=== PATIENT | female | born 1955 | race Caucasian/White ===

== ENCOUNTER → 2019-02-20 | Outpatient (CLI) | payer MEDICARE, MEDICAID ==
[2019-02-20 09:43] LABS: ABSOLUTE BASOPHILS # (AUTO) 0.1 10^3/uL (0.0-0.2); ABSOLUTE EOSINOPHILS # (AUTO) 0.3 10^3/uL (0.0-0.6); ABSOLUTE LYMPHOCYTES (AUTO) 1.7 10^3/uL (0.5-4.7); ABSOLUTE MONOCYTES (AUTO) 0.5 10^3/uL (0.1-1.4); ABSOLUTE NEUT (AUTO) 6.5 10^3/uL (1.7-8.2); BASOPHILS % (AUTO) 0.7 % (0-2); EOSINOPHILS % (AUTO) 2.8 % (0-6); HEMATOCRIT 36.6 % (36.0-47.0); HEMOGLOBIN 12.2 g/dL (12.0-15.5); LYMPHOCYTES % (AUTO) 18.5 % (13-45); MEAN CORPUSCULAR HEMOGLOBIN 26.3 pg (27.0-33.4); MEAN CORPUSCULAR HGB CONC 33.4 g/dL (32.0-36.0); MEAN CORPUSCULAR VOLUME 79 fl (80-97); MONOCYTES % (AUTO) 5.8 % (3-13); PLATELET COUNT 317 10^3/uL (150-450); RED BLOOD COUNT 4.65 10^6/uL (3.72-5.28); RED CELL DISTRIBUTION WIDTH 15.6 % (11.5-14.0); SEGMENTED NEUTROPHILS % (AUTO) 72.2 % (42-78); TOTAL CELLS COUNTED % (AUTO) 100 %
[2019-02-20 10:06] LABS: ALBUMIN 4.1 g/dL (3.5-5.0); ALKALINE PHOSPHATASE 69 U/L (38-126); ANION GAP 9 (5-19); ASPARTATE AMINO TRANSFERASE 17 U/L (14-36); BILIRUBIN,DIRECT 0.2 mg/dL (0.0-0.4); BILIRUBIN,TOTAL 0.6 mg/dL (0.2-1.3); BLOOD UREA NITROGEN 26 mg/dL (7-20); CALCIUM 9.9 mg/dL (8.4-10.2); CARBON DIOXIDE 28 mmol/L (22-30); CHLORIDE 102 mmol/L (98-107); GLUCOSE 120 mg/dL (75-110); POTASSIUM 4.2 mmol/L (3.6-5.0); TOTAL PROTEIN 7.2 g/dL (6.3-8.2)
== END ==
LOC: OD 08:54 → EDSTATUS 02-27 10:30
PROVIDERS: ATTEND Orthopaedic Surgery
DX: Z01.89 Encounter for other specified special examinations (principal); M43.16 Spondylolisthesis, lumbar region; I10 Essential (primary) hypertension
CPT/HCPCS: 36415; 80053; 85025

== ENCOUNTER 2019-04-10 10:59 | Observation (INO) | payer MEDICARE, MEDICAID ==
--- NOTE | 2019-04-03 11:36 | EKG REPORT ---
SEVERITY:- NORMAL ECG - SINUS RHYTHM : Confirmed by: Nuvia Mullen MD 03-Apr-2019 11:36:08
[2019-04-03 12:07] LABS: ABSOLUTE BASOPHILS # (AUTO) 0.1 10^3/uL (0.0-0.2); ABSOLUTE EOSINOPHILS # (AUTO) 0.2 10^3/uL (0.0-0.6); ABSOLUTE LYMPHOCYTES (AUTO) 1.7 10^3/uL (0.5-4.7); ABSOLUTE MONOCYTES (AUTO) 0.5 10^3/uL (0.1-1.4); ABSOLUTE NEUT (AUTO) 6.7 10^3/uL (1.7-8.2); BASOPHILS % (AUTO) 0.6 % (0-2); EOSINOPHILS % (AUTO) 2.3 % (0-6); HEMATOCRIT 36.3 % (36.0-47.0); HEMOGLOBIN 12.5 g/dL (12.0-15.5); LYMPHOCYTES % (AUTO) 18.6 % (13-45); MEAN CORPUSCULAR HEMOGLOBIN 26.8 pg (27.0-33.4); MEAN CORPUSCULAR HGB CONC 34.5 g/dL (32.0-36.0); MEAN CORPUSCULAR VOLUME 78 fl (80-97); MONOCYTES % (AUTO) 5.1 % (3-13); PLATELET COUNT 338 10^3/uL (150-450); RED BLOOD COUNT 4.66 10^6/uL (3.72-5.28); RED CELL DISTRIBUTION WIDTH 15.1 % (11.5-14.0); SEGMENTED NEUTROPHILS % (AUTO) 73.4 % (42-78); TOTAL CELLS COUNTED % (AUTO) 100 %; WHITE BLOOD COUNT 9.1 10^3/uL (4.0-10.5)
[2019-04-03 12:24] LABS: ANION GAP 11 (5-19); BLOOD UREA NITROGEN 25 mg/dL (7-20); CALCIUM 10.1 mg/dL (8.4-10.2); CARBON DIOXIDE 30 mmol/L (22-30); CHLORIDE 98 mmol/L (98-107); GLUCOSE 122 mg/dL (75-110); POTASSIUM 4.8 mmol/L (3.6-5.0)
--- NOTE | 2019-04-03 13:13 | RADIOLOGY REPORT (SQ) ---
EXAM DESCRIPTION: CHEST PA/LATERAL COMPLETED DATE/TIME: 04/03/2019 11:53 am REASON FOR STUDY: PRE-OP COMPARISON: None. EXAM PARAMETERS: NUMBER OF VIEWS: two views TECHNIQUE: Digital Frontal and Lateral radiographic views of the chest acquired. RADIATION DOSE: NA LIMITATIONS: none FINDINGS: LUNGS AND PLEURA: No consolidation, pleural effusion or pneumothorax. MEDIASTINUM AND HILAR STRUCTURES: No mediastinal or hilar contour abnormality. HEART AND VASCULAR STRUCTURES: The cardiac silhouette and pulmonary vasculature are within normal [place] its. BONES: No acute findings. HARDWARE: Cholecystectomy clips in the right upper quadrant. OTHER: No other finding. IMPRESSION: No acute cardiopulmonary process. TECHNICAL DOCUMENTATION: JOB ID: [id number] [employer]- All Rights Reserved Reading location - IP/workstation name: [email or web address]
[~2019-04-10 10:59] MED LIST: LACTATED RINGERS 1000 ML IV PRN; LIDOCAINE 0.5% INJ-PF (5 MG/ML) 50 ML SDV SUBCUT PRN
[2019-04-10] MEDS ORDERED: PHENYLEPHRINE HCL INJ/PF 10 MG/1 ML SDV ONE (12:00)
[2019-04-10] MEDS ORDERED: SUCCINYLCHOLINE CHLORIDE INJ 200 MG/10 ML VIAL ONE (12:00)
[2019-04-10] MEDS ORDERED: CEFAZOLIN 1 GM/D5W RTU 1 GM/50 ML RTUPB IV ONE (13:40)
[2019-04-10] MEDS ORDERED: CEFAZOLIN INJ 1 GM VIAL ONE (13:40)
[2019-04-10] MEDS ORDERED: FENTANYL CITRATE INJ/PF 250 MCG/5 ML AMPULE ONE (13:52)
[2019-04-10] MEDS ORDERED: ONDANSETRON HCL INJ/PF 4 MG/2 ML SDV ONE (13:52)
[2019-04-10] MEDS ORDERED: MIDAZOLAM 2 MG/2 ML INJ ONE (13:52)
[2019-04-10] MEDS ORDERED: PROPOFOL INJ 200 MG/20 ML VIAL IV ONE ×3 (13:53→14:13)
[2019-04-10] MEDS ORDERED: MINERAL OIL (STERILE) 10 ML VIAL ONE (15:24)
[2019-04-10] MEDS ORDERED: BACITRACIN INJ 50,000 UNIT VIAL ONE (15:24)
[2019-04-10] MEDS ORDERED: HEPARIN SOD (PORCINE) 1,000 UNIT/ML 10 ML VIAL ONE (15:32)
[2019-04-10] MEDS ORDERED: BUPIVACAINE INJ/PF LIPOSOME/PF 266 MG/20 ML SDV ONE (15:57)
[2019-04-10] MEDS ORDERED: BUPIVACAINE HCL 0.5 % INJ/PF 30 ML SDV ONE (15:58)
--- NOTE | 2019-04-10 17:46 | RADIOLOGY REPORT (SQ) ---
EXAM DESCRIPTION: L SPINE 2 VIEWS; NO CHG FLUORO COMPLETED DATE/TIME: 04/10/2019 5:31 pm REASON FOR STUDY: SPINAL FUSION L4-L5 M54.32 SCIATICA, LEFT SIDE M54.5 LOW BACK PAIN M43.16 SPOND YLOLISTHESIS, LUMBAR REGION COMPARISON: None. FLUOROSCOPY TIME: 1.0 minutes. 9 images saved to PACS. TECHNIQUE: Intra-operative images acquired during surgical procedure to evaluate progress. NUMBER OF IMAGES: 9 images. LIMITATIONS: None. FINDINGS: Images of the lower lumbar spine acquired during the procedure. IMPRESSION: IMAGE(S) OBTAINED DURING PROCEDURE. COMMENT: Quality ID [id number]: Final reports for procedures using fluoroscopy that document radiation exp osure indices, or exposure time and number of fluorographic images (if radiation exposure indices are not available) Please consult full operative report of the attending physician for description of the procedure. TECHNICAL DOCUMENTATION: JOB ID: [id number] [employer]- All Rights Reserved Reading location - IP/workstation name: [email or web address]
--- NOTE | 2019-04-10 17:46 | RADIOLOGY REPORT (SQ) ---
EXAM DESCRIPTION: L SPINE 2 VIEWS; NO CHG FLUORO COMPLETED DATE/TIME: 04/10/2019 5:31 pm REASON FOR STUDY: SPINAL FUSION L4-L5 M54.32 SCIATICA, LEFT SIDE M54.5 LOW BACK PAIN M43.16 SPOND YLOLISTHESIS, LUMBAR REGION COMPARISON: None. FLUOROSCOPY TIME: 1.0 minutes. 9 images saved to PACS. TECHNIQUE: Intra-operative images acquired during surgical procedure to evaluate progress. NUMBER OF IMAGES: 9 images. LIMITATIONS: None. FINDINGS: Images of the lower lumbar spine acquired during the procedure. IMPRESSION: IMAGE(S) OBTAINED DURING PROCEDURE. COMMENT: Quality ID [id number]: Final reports for procedures using fluoroscopy that document radiation exp osure indices, or exposure time and number of fluorographic images (if radiation exposure indices are not available) Please consult full operative report of the attending physician for description of the procedure. TECHNICAL DOCUMENTATION: JOB ID: [id number] [employer]- All Rights Reserved Reading location - IP/workstation name: [email or web address]
[2019-04-10] MEDS ORDERED: HYDROCODONE/ACETAMINOPHEN 5-325 MG TABLET PO PRN (17:50)
[2019-04-10] MEDS ORDERED: METHOCARBAMOL 500 MG TABLET PO PRN (17:50)
[2019-04-10] MEDS ORDERED: DIAZEPAM 5 MG TABLET PO PRN (17:50)
[2019-04-10] MEDS ORDERED: ACETAMINOPHEN 325 MG TABLET PO PRN (17:50)
[2019-04-10] MEDS ORDERED: ONDANSETRON 4 MG TAB.RAPDIS PO PRN (17:50)
[2019-04-10] MEDS ORDERED: ONDANSETRON HCL INJ/PF 4 MG/2 ML SDV IV PRN (17:50)
[2019-04-10] MEDS ORDERED: MORPHINE SULFATE 10 MG/ML INJ IV PRN ×2 (17:50→17:58)
[2019-04-10] MEDS ORDERED: FENTANYL CITRATE INJ/PF 100 MCG/2 ML AMPUL ONE (17:51)
[2019-04-10] MEDS: FENTANYL CITRATE INJ/PF 100 MCG/2 ML AMPUL IV PRN ×2 (17:55→18:15)
[2019-04-10] MEDS ORDERED: DIPHENHYDRAMINE HCL 50 MG/ML VIAL IV PRN (17:58)
[2019-04-10] MEDS ORDERED: MEPERIDINE HCL/PF INJ 25 MG/1 ML DISP.SYRIN IV PRN (17:58)
[2019-04-10] MEDS ORDERED: PROMETHAZINE HCL INJ 25 MG/1 ML VIAL IV PRN (17:58)
[2019-04-10] MEDS ORDERED: FENTANYL CITRATE INJ/PF 100 MCG/2 ML AMPUL IV PRN ×2 (17:58)
[2019-04-10] MEDS ORDERED: CEFAZOLIN 2 GM/D5W RTU 2 GM/50 ML RTUPB IV SCH (18:00)
--- NOTE | 2019-04-10 18:04 | Operative Report ---
Operative Report DATE OF SURGERY: 04/10/19 PREOPERATIVE DIAGNOSIS: L4-5 spondylolisthesis. L4-5 stenosis neurogenic barry ication. Degenerative disc disease. Back pain. L4-5 radiculitis POSTOPERATIVE DIAGNOSIS: L4-5 spondylolisthesis. L4-5 stenosis neurogenic claudication. Degenerative disc disease. Back pain. L4-5 radiculitis OPERATION: L4-5 anterior lateral interbody fusion with interbody spacer and instrumentation posteriorly and iliac crest aspiration for bone marrow concentration SURGEON: ANA GORDON 1ST DEVELOPER TRADING SYSTEMS: GURINDER FRASER ANESTHESIA: GA TISSUE REMOVED OR ALTERED: [employer] Voyager 6.5 x 45 mm screws x4 and 40 mm giancarlo on the right and 40 mm giancarlo on the left and interbody spacer is Spinology mesh spacer 22 mm ESTIMATED BLOOD LOSS: 325 cc 175 cc of Cell Saver given back PROCEDURE: Patient is brought into the room placed under general anesthesia received 2 g of Ancef within 1 hour of cut time was placed on the Michael table medial epicondyles and axillary areas are well-padded. Neuro monitoring leads for SSEP and cranial motor testing are placed on the patient as well as a Mcgurie catheter is placed preoperatively. After appropriate surgical timeout the [employer] robot is utilized and on the right posterior superior iliac spine a pin is placed and attached to the robot. After obtaining registration imaging in the AP and oblique position and verification 6.5 x 45 mm screws are inserted using portal incisions on the right and the left at L4 and L5 bilaterally. Left iliac crest is aspirated at 2 different sites total of 50 cc of bone marrow aspirate are obtained and concentrated to be used an interbody spacer with the allograft. Attention was then paid to the left sided anterior lateral portal for entry into the disc space which is carried out under navigation guidance upon verification also with x-rays and then stimulation thresholds greater than 17 mA. Upon inserting the portal into the disc space at L4 5 cm fluoroscopy was used to verify the position as it did also to verify the screws position. Endplate maryellen and curettes and brushes are used to carry out a complete discectomy then the verify balloon is inserted to verify good contact with the endplates. Then the appropriate size mesh spacer is introduced into the interbody. The mesh spacer is soaked in bone marrow aspirate concentrate and is filled with bone graft showing good correction and good containment within the disc space at L4-5. Upon neuro monitoring testing and cranial motor testing found to be stable then the portal is removed anterior laterally and attention is then paid to the placement of the rods upon using the caliper device the appropriate length rods were determined to be 40 mm rods on the right and on the left those are passed down and locked into position and final tightened. Then the tabs are removed and the portals are irrigated with copious amounts of irrigation and the posterior superior iliac spine pin connected to the robot is removed as well and the deep and superficial tissues were infiltrated with 1.3% Exparel 20 cc mixed with 20 cc of 0.5% bupivacaine plain. The portals are closed using 2-0 Vicryl and then Dermabond and Steri-Strips then 4 x 4's were used to cover the wounds on the right and the left and dressed with coverall tape. Please note that this procedure could not be done without the assistance of Ibrahima Jeffrey working to assist with the placement of the screws positioning of the robot carrying out the aspiration through the left side iliac crest aspiration please also note that the iliac crest aspiration is carried out on the left side through a separate incision. Ibrahmia Jeffrey was instrumental throughout this whole process and I could not have done this procedure without his assistance as mentioned above.
[2019-04-10] MEDS ORDERED: SCOPOLAMINE HYDROBROMIDE 1.5 MG PATCH.TD72 TD PRN ×2 (18:15→19:23)
[2019-04-10] MEDS ORDERED: GLUCAGON,HUMAN RECOMB 1 MG INJ IM PRN (18:19)
[2019-04-10] MEDS ORDERED: HYDROMORPHONE HCL INJ/PF 2 MG/ML AMPULE ONE (18:19)
[2019-04-10] MEDS ORDERED: DEXTROSE 50%-WATER 25 GM/50 ML DISP.SYRIN IV PRN ×2 (18:19)
[2019-04-10] MEDS ORDERED: DEXTROSE 40% GEL 15 GM TUBE PO PRN ×2 (18:19)
[2019-04-10] MEDS ORDERED: METHOCARBAMOL INJ/PF 1000 MG/10 ML SDV IV ONE (18:30)
[2019-04-10] MEDS ORDERED: HYDROMORPHONE HCL INJ/PF 2 MG/ML AMPULE IV ONE (20:00)
[2019-04-10] MEDS ORDERED: (PENDING PHARMACY ID) (Zolpidem Tartrate [Zolpidem Tartrate] 10 MG) PO SCH (22:00)
[2019-04-10] MEDS: ZOLPIDEM TARTRATE 5 MG TABLET PO SCH (23:15)
[2019-04-10] MEDS: CEFAZOLIN SODIUM 2 GM in DEXTROSE 5%-WATER 100 ML IV SCH (23:16)
[2019-04-10] MEDS: GABAPENTIN 300 MG CAPSULE PO SCH (23:16)
[2019-04-10] MEDS: DEXTROSE 5%-LACTATED RINGERS 1,000 ML IV PRN (23:17)
[2019-04-10] MEDS: HYDROCODONE/ACETAMINOPHEN 10-325 MG TABLET PO PRN (23:30)
[2019-04-11] MEDS: DEXTROSE 5%-LACTATED RINGERS 1,000 ML IV PRN (04:49)
[2019-04-11] MEDS: GABAPENTIN 300 MG CAPSULE PO SCH ×3 (05:43→22:19)
[2019-04-11] MEDS: CEFAZOLIN SODIUM 2 GM in DEXTROSE 5%-WATER 100 ML IV SCH (05:48)
[2019-04-11 07:00] LABS: HEMATOCRIT 30.2 % (36.0-47.0); HEMOGLOBIN 10.3 g/dL (12.0-15.5); MEAN CORPUSCULAR HEMOGLOBIN 26.9 pg (27.0-33.4); MEAN CORPUSCULAR HGB CONC 34.2 g/dL (32.0-36.0); MEAN CORPUSCULAR VOLUME 79 fl (80-97); PLATELET COUNT 263 10^3/uL (150-450); RED BLOOD COUNT 3.85 10^6/uL (3.72-5.28); RED CELL DISTRIBUTION WIDTH 15.4 % (11.5-14.0); WHITE BLOOD COUNT 10.8 10^3/uL (4.0-10.5)
--- NOTE | 2019-04-11 07:23 | PDOC PROGRESS REPORT ---
Subjective Progress Note for:: 04/11/19 Reason For Visit: M54.32 SCIATICA, LEFT SIDE 63-year-old white female now postop day 1 status post lumbar fusion. Patient with an uneventful postoperative course. Patient having some nausea and complaining of pain this morning. Physical Exam Vital Signs: Temp Pulse Resp BP Pulse Ox 36.4 C 107 H 12 110/68 96 04/10/19 19:12 04/10/19 19:12 04/10/19 19:12 04/10/19 19:12 04/10/19 19:12 Intake & Output 04/10/19 04/11/19 04/12/19 06:59 06:59 06:59 Intake Total 4600 Output Total 825 Balance 3775 Weight 88.9 kg Physical Exam: Overweight middle-aged white female lying comfortably in hospital bed. Patient is alert, oriented, and appropriate. Head exam: PRESENT: normocephalic Respiratory exam: PRESENT: unlabored Cardiovascular exam: PRESENT: RRR Pulses: PRESENT: +1 pedal pulses bilateral GI/Abdominal exam: PRESENT: soft Rectal exam: PRESENT: deferred Extremities exam: PRESENT: other - Lumbar dressing dry Neurological exam: PRESENT: alert, awake, oriented to person, oriented to place, oriented to time, oriented to situation. ABSENT: motor sensory deficit Psychiatric exam: PRESENT: appropriate affect, normal mood. ABSENT: homicidal ideation, suicidal ideation Skin exam: PRESENT: dry, intact, warm. ABSENT: cyanosis, rash Results Laboratory Results: 04/11/19 06:50 04/10/19 11:46 04/10/19 04/11/19 11:46 06:50 WBC 10.8 H RBC 3.85 Hgb 10.3 L Hct 30.2 L MCV 79 L MCH 26.9 L MCHC 34.2 RDW 15.4 H Plt Count 263 Potassium 4.1 Impressions: Chest X-Ray 04/03/19 00:00 IMPRESSION: No acute cardiopulmonary process. Fluoroscopy 04/10/19 00:00 IMPRESSION: IMAGE(S) OBTAINED DURING PROCEDURE. Lumbar Spine X-Ray 04/10/19 00:00 IMPRESSION: IMAGE(S) OBTAINED DURING PROCEDURE. Status: Imported from PACS Assessment & Plan - Diagnosis (1) Lumbar stenosis Is this a current diagnosis for this admission?: Yes Plan: 63-year-old white female status post lumbar fusion with an uneventful postoperative course. Patient with some nausea which is resolving and pain which she is trying to avoid analgesics for. Patient be mobilized with physical therapy today and anticipate discharge home tomorrow. - Time Time Spent with patient: 15-24 minutes Anticipated discharge: Home with Homehealth Within: within 24 hours
[2019-04-11] MEDS: HYDROCHLOROTHIAZIDE 12.5 MG TABLET PO SCH (09:53)
[2019-04-11] MEDS: GLIMEPIRIDE 1 MG TABLET PO SCH (09:54)
[2019-04-11] MEDS: LOSARTAN POTASSIUM 50 MG TABLET PO SCH (09:54)
[2019-04-11] MEDS: HYDROCODONE/ACETAMINOPHEN 10-325 MG TABLET PO PRN (09:55)
[2019-04-11] MEDS: METFORMIN HCL 500 MG TABLET PO SCH (09:55)
[2019-04-11] MEDS: SITAGLIPTIN PHOSPHATE 50 MG TABLET PO SCH (09:56)
[2019-04-11] MEDS: INSULIN REG, HUMAN 100 UNIT/ML 3 ML VIAL (PYX) SUBCUT SCH ×3 (09:56→19:16)
[2019-04-11] MEDS: CITALOPRAM HYDROBROMIDE 20 MG TABLET PO SCH (09:57)
[2019-04-11] MEDS ORDERED: (PENDING PHARMACY ID) (Linagliptin [Tradjenta] 5 MG) PO SCH (10:00)
[2019-04-11] MEDS ORDERED: (PENDING PHARMACY ID) (Glimepiride [Glimepiride] 2 MG) PO SCH (10:00)
[2019-04-11] MEDS ORDERED: (PENDING PHARMACY ID) (Losartan/Hydrochlorothiazide [Losartan-Hctz 50-12.5 Mg Tab] 1 EACH) PO SCH (10:00)
[2019-04-11] MEDS ORDERED: (PENDING PHARMACY ID) (Citalopram Hydrobromide [Citalopram Hbr] 40 MG) PO SCH (10:00)
[2019-04-11] MEDS ORDERED: INFLUENZA QUAD (6MOS+) 2019-20 VAC 0.5 ML SYR IM ONE (14:43)
--- NOTE | 2019-04-11 18:35 | RADIOLOGY REPORT (SQ) ---
EXAM DESCRIPTION: L SPINE 2 VIEWS COMPLETED DATE/TIME: 04/11/2019 5:55 pm REASON FOR STUDY: s/p fall M54.32 SCIATICA, LEFT SIDE M54.5 LOW BACK PAIN M43.16 SPONDYLOLISTHESI S, LUMBAR REGION COMPARISON: None. NUMBER OF VIEWS: Three views. TECHNIQUE: AP, lateral and sacral radiographic images acquired of the lumbar spine. LIMITATIONS: None. FINDINGS: MINERALIZATION: Normal. SEGMENTATION: Normal. No transitional anatomy. ALIGNMENT: Mild anterolisthesis of L4 on L5. VERTEBRAE: Maintained height. No fracture or worrisome bone lesion. DISCS: Disc spaces narrowed from L3-S1. There is a disc implant at L4-5. POSTERIOR ELEMENTS: Pedicles and facets are intact. No pars defect or posterior arch defects. HARDWARE: Posterior rods at L4-5 with screws through the pedicles. PARASPINAL SOFT TISSUES: Normal. PELVIS: Intact as visualized. No fractures or worrisome bone lesions. SI joints intact. OTHER: No other significant finding. IMPRESSION: Surgical changes. Mild anterolisthesis of L4 on L5. Mild degenerative disc changes. TECHNICAL DOCUMENTATION: JOB ID: [id number]- All Rights Reserved Reading location - IP/workstation name: [email or web address]
[2019-04-11] MEDS: ZOLPIDEM TARTRATE 5 MG TABLET PO SCH (22:19)
[2019-04-12] MEDS: GABAPENTIN 300 MG CAPSULE PO SCH (05:21)
--- NOTE | 2019-04-12 08:16 | PDOC DISCHARGE SUMMARY ---
General - Admit/Disc Date/PCP Admission Date/Primary Care Provider: MONALISA CHAN Discharge Date: 04/12/19 - Discharge Diagnosis Final Diagnosis: Status post L4-5 lumbar fusion with instrumentation and anterior interbody spacer placement - Assessment Summary: Patient was admitted with L4-5 spondylolisthesis and instability and significant back pain underwent L4-5 fusion and instrumentation and anterior interbody spacer placement. Patient did well postoperatively. - Additional Information Resuscitation Status: Full Code Discharge Diet: As Tolerated Referrals: GURINDER FRASER PA-C [ALLIED HEALTH PROFESSIONAL] - 04/23/19 11:00 am Prescriptions: Hydrocodone/Acetaminophen [[place] 5-325 mg Tablet] 1 tab PO Q4HP PRN #40 tablet PRN Reason: severe pain Methocarbamol [Robaxin 500 mg Tablet] 1,000 mg PO TIDP PRN #60 tablet PRN Reason: Spams Ondansetron [Zofran Odt 4 mg Tablet] 4 mg PO Q4HP PRN #60 tab.rapdis PRN Reason: Nausea Home Medications: Citalopram Hydrobromide [Citalopram HBr] 40 mg PO DAILY 02/20/19 Gabapentin [Neurontin 300 mg Capsule] 300 mg PO Q8 02/20/19 Glimepiride 2 mg PO DAILY 02/20/19 Linagliptin [Tradjenta] 5 mg PO DAILY 02/20/19 Losartan/Hydrochlorothiazide [Losartan-Hctz 50-12.5 mg Tab] 1 each PO DAILY 02/20/19 Metformin HCl 500 mg PO DAILY 02/20/19 Zolpidem Tartrate 10 mg PO QHS 02/20/19 Hydrocodone/Acetaminophen [[place] 5-325 mg Tablet] 1 tab PO Q4HP PRN #40 tablet 04/12/19 Methocarbamol [Robaxin 500 mg Tablet] 1,000 mg PO TIDP PRN #60 tablet 04/12/19 Ondansetron [Zofran Odt 4 mg Tablet] 4 mg PO Q4HP PRN #60 tab.rapdis 04/12/19 History of Present Illiness History of Present Illness: ROCIO HUNT is a 63 year old female Patient was dealing with significant back pain and instability and stenosis and radicular symptoms and we decided to proceed with lumbar fusion instrumentation. Hospital Course Hospital Course: Patient was admitted and underwent L4-5 fusion instrumentation anterior interbody spacer placement placement and did well and progressed well with physical therapy and is being discharged to home Physical Exam Vital Signs: Temp Pulse Resp BP Pulse Ox 97.9 F 111 H 16 117/66 96 04/12/19 00:00 04/12/19 00:00 04/12/19 00:00 04/12/19 00:00 04/12/19 00:00 Intake & Output 04/11/19 04/12/19 04/13/19 06:59 06:59 06:59 Intake Total 4600 1000 Output Total 825 Balance 3775 1000 Weight 88.9 kg 88.7 kg Exam: Patient is neurovascular intact bilateral lower extremities dressing is intact patient has some back pain no calf tenderness. Patient is able to ambulate all the way down the urias and back with a walker. Results Laboratory Results: WBC 10.8 10^3/uL (4.0-10.5) H 04/11/19 06:50 RBC 3.85 10^6/uL (3.72-5.28) 04/11/19 06:50 Hgb 10.3 g/dL (12.0-15.5) L 04/11/19 06:50 Hct 30.2 % (36.0-47.0) L 04/11/19 06:50 MCV 79 fl (80-97) L 04/11/19 06:50 MCH 26.9 pg (27.0-33.4) L 04/11/19 06:50 MCHC 34.2 g/dL (32.0-36.0) 04/11/19 06:50 RDW 15.4 % (11.5-14.0) H 04/11/19 06:50 Plt Count 263 10^3/uL (150-450) 04/11/19 06:50 Lymph % (Auto) 18.6 % (13-45) 04/03/19 11:19 Mcdowell % (Auto) 5.1 % (3-13) 04/03/19 11:19 Eos % (Auto) 2.3 % (0-6) 04/03/19 11:19 Baso % (Auto) 0.6 % (0-2) 04/03/19 11:19 Absolute Neuts (auto) 6.7 10^3/uL (1.7-8.2) 04/03/19 11:19 Absolute Lymphs (auto) 1.7 10^3/uL (0.5-4.7) 04/03/19 11:19 Absolute Monos (auto) 0.5 10^3/uL (0.1-1.4) 04/03/19 11:19 Absolute Eos (auto) 0.2 10^3/uL (0.0-0.6) 04/03/19 11:19 Absolute Basos (auto) 0.1 10^3/uL (0.0-0.2) 04/03/19 11:19 Seg Neutrophils % 73.4 % (42-78) 04/03/19 11:19 Sodium 139.2 mmol/L (137-145) 04/03/19 11:19 Potassium 4.1 mmol/L (3.6-5.0) 04/10/19 11:46 Chloride 98 mmol/L (98-107) 04/03/19 11:19 Carbon Dioxide 30 mmol/L (22-30) 04/03/19 11:19 Anion Gap 11 (5-19) 04/03/19 11:19 BUN 25 mg/dL (7-20) H 04/03/19 11:19 Creatinine 0.98 mg/dL (0.52-1.25) 04/03/19 11:19 Est GFR ( Amer) > 60 (>60) 04/03/19 11:19 Est GFR (MDRD) Non-Af 57 (>60) L 04/03/19 11:19 Glucose 122 mg/dL (75-110) H 04/03/19 11:19 POC Glucose 163 mg/dL (70-110) H 04/12/19 06:20 Calcium 10.1 mg/dL (8.4-10.2) 04/03/19 11:19 Impressions: Chest X-Ray 04/03/19 00:00 IMPRESSION: No acute cardiopulmonary process. Fluoroscopy 04/10/19 00:00 IMPRESSION: IMAGE(S) OBTAINED DURING PROCEDURE. Lumbar Spine X-Ray 04/10/19 00:00 IMPRESSION: IMAGE(S) OBTAINED DURING PROCEDURE. Lumbar Spine X-Ray 04/11/19 00:00 IMPRESSION: Surgical changes. Mild anterolisthesis of L4 on L5. Mild degenerative disc changes. Plan Plan of Treatment: Patient has appointment to follow-up with us on 23 April she is instructed to keep her dressing clean dry and intact and no lifting more than 2 pounds and no driving and sponge baths only.
[2019-04-12] MEDS: INSULIN REG, HUMAN 100 UNIT/ML 3 ML VIAL (PYX) SUBCUT SCH (08:30)
[2019-04-12] MEDS: LOSARTAN POTASSIUM 50 MG TABLET PO SCH (10:02)
[2019-04-12] MEDS: CITALOPRAM HYDROBROMIDE 20 MG TABLET PO SCH (10:02)
[2019-04-12] MEDS: METFORMIN HCL 500 MG TABLET PO SCH (10:03)
[2019-04-12] MEDS: GLIMEPIRIDE 1 MG TABLET PO SCH (10:03)
[2019-04-12] MEDS: HYDROCHLOROTHIAZIDE 12.5 MG TABLET PO SCH (10:03)
[2019-04-12] MEDS: SITAGLIPTIN PHOSPHATE 50 MG TABLET PO SCH (10:03)
[2019-04-12 10:42] VITALS: BP 115/47
== END 2019-04-12 11:50 | disposition home health service (06) ==
LOC: OROUT 10:59 → EDSTATUS 13:00 → 4S 19:38 → OROUT 04-11 13:11 → 4S 04-11 13:12
PROVIDERS: ADMIT Orthopaedic Surgery; ATTEND Orthopaedic Surgery
DX: M43.16 Spondylolisthesis, lumbar region (principal); M48.062 Spinal stenosis, lumbar region with neurogenic claudication; M51.16 Intervertebral disc disorders with radiculopathy, lumbar region; E11.9 Type 2 diabetes mellitus without complications; I10 Essential (primary) hypertension; Z79.899 Other long term (current) drug therapy; Z79.84 Long term (current) use of oral hypoglycemic drugs; Z96.651 Presence of right artificial knee joint
CPT/HCPCS: 61783; 22558; 20939; 22853; 22840; 93005; 36415 ×2; 82962 ×2; 84132; 85025; 85027; 80048; 87070; 71046; 72100; 93010; 97530 ×2; 97116 ×2; 97162; 00630; G0378 ×2; Q9966; J2250; J3490 ×5; J0690 ×2; A9270 ×23; J3010 ×2; J1644; J2800; J1170; J2370; J0330; J2405 ×2; J7060; J7121 ×2; J2704; C9290; J1815; S0119